=== PATIENT | male | born 1960 | race Caucasian/White ===

== ENCOUNTER → 2020-02-07 14:59 | Outpatient (BNVA) | payer MEDICARE, OTHER, SELFPAY | PROVIDERS: PCP Nurse Practitioner Family; Visit Provider Nurse Practitioner Family | DX: M25.521 Pain in right elbow (principal) | CPT/HCPCS: 73080 ==

== ENCOUNTER → 2020-09-28 14:07 | Outpatient (BNVA) | payer MEDICARE, OTHER, SELFPAY | PROVIDERS: PCP Nurse Practitioner Family; Visit Provider Nurse Practitioner Family | DX: M79.671 Pain in right foot (principal) | CPT/HCPCS: 73630 ==

== ENCOUNTER 2020-11-20 07:13 | Outpatient (CLI) | payer MEDICARE, OTHER, SELFPAY ==
[2020-11-20 07:30] VITALS: BP 198/128; PULSE 74; RESP 18; TEMP 37.1; O2SAT 99; BMI 27.8
--- NOTE | 2020-11-20 07:41 | ED_ITS ---
HPI - General Adult History of Present Illness: HPI narrative: This patient is a 59-year-old male who presents to the emergency department for infusion for treatment due to Covid. Patient denies any increased shortness of breath or work of breathing. Patient states no questions. Associated symptoms: Deny chest pain, dyspnea, headache(s), nausea, rash, palpitations or vomiting Review of Systems General: Reports: 10 or more systems reviewed and unremarkable except in HPI and below Const: Denies: fever(s), chills, body aches or fatigue Eyes: Denies: change in vision or blurry vision ENMT: Denies: throat pain, hoarseness or mouth pain Card: Denies: chest pain, palpitations, irregular heart rhythm, edema, swellin g of feet/ankles or lightheadedness Resp: Denies: dyspnea, productive cough, non-productive cough, wheezing or pain on inspiration GI: Denies: abdominal pain, nausea or vomiting : Denies: flank pain, dysuria, urinary frequency, urinary urgency or urinary hesitancy Musc: Denies: neck pain, back pain, extremity pain, extremity swelling, joint pain, joint swelling, joint redness, joint warmth or limited range of motion Skin/Breast: Denies: rash, pruritus, erythema or skin tenderness Neuro: Denies: headache(s), numbness in extremities or weakness in extremities Psych: Denies: anxiety or depression Physical Exam Const: COMMON NORMALS: no acute distress, average body habitus, patient oriented x3, no limitations, healthy appearing, alert and well nourished HENMT: COMMON NORMALS: normocephalic, atraumatic, hearing grossly normal bilaterally, external ears normal, EAC's normal, TM's normal bilaterally, Normal external nose present, Normal nasal mucous membranes and turbinates present, moist oral mucous membranes, oropharynx normal, dentition normal and gingiva normal HEAD & SCALP: normocephalic and atraumatic NOSE: Normal external nose present and Normal nasal mucous membranes and turbinates present EXTERNAL EAR: Yes external ears normal EXTERNAL AUDITORY CANAL: EAC's normal TYMPANIC MEMBRANE: TM's normal bilaterally Neck/C-Spine: COMMON NORMALS: full ROM, no lymphadenopathy, supple, no meningeal signs, no JVD, Thyroid normal and No carotid bruits THYROID: Thyroid normal Chest: COMMONS NORMALS: normal inspection of the chest, normal palpation of en tire chest wall, normal inspection of the breasts and normal palpation of the breasts Breast/axilla inspection: Yes normal inspection of the breasts BREAST/AXILLA PALPATION: Yes normal palpation of the breasts Resp: COMMON NORMALS: normal respiratory effort, No retractions, No use of accessory muscles, clear to auscultation bilaterally and percussion normal AUSCULTATION: clear to auscultation bilaterally PERCUSSION: percussion normal Cardio: COMMON NORMALS: no JVD, regular rate, regular rhythm, S1 normal heart sound present, S2 normal heart sound present, No gallops present (Cardio), No clicks present (Cardio), No murmurs present (Cardio), No rub (Cardio) and Peripheral pulses 2+ throughout RATE: regular rate RHYTHM: regular rhythm HEART SOUNDS: S1 normal heart sound present and S2 normal heart sound present PERIPHERAL PULSES: Peripheral pulses 2+ throughout GI: COMMON NORMALS: Normal to inspection, nondistended, normoactive bowel sounds present, Soft to palpation, non-tender, No hepatosplenomegaly present, no masses and no bruits PALPATION: Yes Soft to palpation and Yes No hepatosp lenomegaly present : COMMON NORMALS: Yes no CVA tenderness BLADDER/KIDNEY EXAM: Yes no CVA tenderness Back/Pelvis: COMMON NORMALS: no CVA tenderness, thoracic and lumbar spine normal to inspection, no thoracic nor lumbar tenderness, thoraco-lumbar ROM normal and straight leg raise negative bilaterally Extremity: COMMON NORMALS: normal to inspection, full ROM, capillary refill normal, no joint enlargement, no clubbing, cyanosis or edema, no calf tenderness and no pedal edema Neuro: COMMON NORMALS: patient oriented x3 SENSORIUM/ORIENTATION: Yes alert MENINGEAL SIGNS: Yes no meningeal signs Course Vital Signs: Vital signs: Vital Signs Temperature 98.7 F 11/20/20 07:30 Pulse Rate 74 11/20/20 07:30 Respiratory Rate 18 11/20/20 07:30 Blood Pressure 198/128 11/20/20 07:30 Pulse Oximetry 99 11/20/20 07:30 MDM - General Adult MDM Narrative: Medical decision making narrative: This patient is a 59-year-old male who presents to the emergency department for infusion for treatment due to Covid. Patient denies any increased shortness of breath or work of breathing. Patient states no questions. Discharge Plan Discharge Patient Disposition: Home Referrals: Saloni Bashir [Primary Care Provider] - Diet: Advance as tolerated Activity: Resume usual activity Coding Level of Care Code ED Educational Administration Teacher for Trevon De Leon
[2020-11-20 10:24] VITALS: BP 168/104; PULSE 67; RESP 18; O2SAT 98
--- NOTE | 2020-11-28 16:17 | DCPLANNER ---
environmental services project manager had message that patient received the monoclonal antibody infusion. environmental services project manager called to check on patient to see how he was feeling. Patient stated that before the infusion that he had lost his sense of taste and smell. He did not have a cough, or fever. Patient stated that after the infusion that he is feeling much better, he has his smell and taste back, and he is feeling much better.
== END 2020-11-20 07:14 | disposition home or self-care (01) ==
PROVIDERS: PCP Nurse Practitioner Family; Visit Provider Nurse Practitioner Family
DX: U07.1 COVID-19 (principal)
CPT/HCPCS: 96365

== ENCOUNTER → 2021-05-17 10:55 | Outpatient (BNVA) | payer MEDICARE, OTHER, SELFPAY | PROVIDERS: PCP Nurse Practitioner Family; Visit Provider Internal Medicine Rheumatology | DX: M06.041 Rheumatoid arthritis without rheumatoid factor, right hand (principal); M06.042 Rheumatoid arthritis without rheumatoid factor, left hand; Z79.899 Other long term (current) drug therapy; Z71.85 Encounter for immunization safety counseling; Z87.891 Personal history of nicotine dependence | CPT/HCPCS: 99204 ==

== ENCOUNTER → 2021-08-29 10:44 | Outpatient (BNVA) | payer MEDICARE, OTHER, SELFPAY | PROVIDERS: PCP Nurse Practitioner Family; Visit Provider Internal Medicine Rheumatology | DX: M06.041 Rheumatoid arthritis without rheumatoid factor, right hand (principal); M06.042 Rheumatoid arthritis without rheumatoid factor, left hand; Z79.899 Other long term (current) drug therapy; E11.9 Type 2 diabetes mellitus without complications; Z79.84 Long term (current) use of oral hypoglycemic drugs; Z71.85 Encounter for immunization safety counseling | CPT/HCPCS: 99214 ==

== ENCOUNTER → 2021-10-01 10:39 | Outpatient (BNVA) | payer MEDICARE, OTHER, SELFPAY | PROVIDERS: PCP Nurse Practitioner Family; Visit Provider Internal Medicine Rheumatology | DX: M06.041 Rheumatoid arthritis without rheumatoid factor, right hand (principal); M06.042 Rheumatoid arthritis without rheumatoid factor, left hand; Z79.899 Other long term (current) drug therapy; Z71.85 Encounter for immunization safety counseling; E11.9 Type 2 diabetes mellitus without complications; Z79.84 Long term (current) use of oral hypoglycemic drugs; M06.2 Rheumatoid bursitis | CPT/HCPCS: 99214 ==

== ENCOUNTER → 2021-10-02 11:00 | Outpatient (BNVA) | payer MEDICARE, OTHER, SELFPAY | PROVIDERS: PCP Nurse Practitioner Family; Visit Provider Internal Medicine Rheumatology | DX: M06.041 Rheumatoid arthritis without rheumatoid factor, right hand (principal); M06.042 Rheumatoid arthritis without rheumatoid factor, left hand | CPT/HCPCS: 96372 ==

== ENCOUNTER → 2021-12-19 14:04 | Outpatient (BNVA) | payer MEDICARE, OTHER, SELFPAY | PROVIDERS: PCP Nurse Practitioner Family; Visit Provider Internal Medicine Rheumatology | DX: M06.041 Rheumatoid arthritis without rheumatoid factor, right hand (principal); M06.042 Rheumatoid arthritis without rheumatoid factor, left hand; Z79.899 Other long term (current) drug therapy; Z71.85 Encounter for immunization safety counseling | CPT/HCPCS: 99214 ==

== ENCOUNTER → 2022-04-09 14:05 | Outpatient (BNVA) | payer MEDICARE, OTHER, SELFPAY | PROVIDERS: PCP Nurse Practitioner Family; Visit Provider Internal Medicine Rheumatology | DX: I16.0 Hypertensive urgency (principal); M06.041 Rheumatoid arthritis without rheumatoid factor, right hand; M06.042 Rheumatoid arthritis without rheumatoid factor, left hand; Z79.899 Other long term (current) drug therapy; Z71.85 Encounter for immunization safety counseling; I10 Essential (primary) hypertension; Z79.891 Long term (current) use of opiate analgesic | CPT/HCPCS: 99214 ==

== ENCOUNTER → 2022-04-10 13:01 | Outpatient (BNVA) | payer MEDICARE, OTHER, SELFPAY | PROVIDERS: PCP Nurse Practitioner Family; Referring Provider Nurse Practitioner Family; Visit Provider Specialist | DX: M77.8 Other enthesopathies, not elsewhere classified (principal); M19.011 Primary osteoarthritis, right shoulder | CPT/HCPCS: 20610; 73030; 99204; J1100; J2795; J3301 ==

== ENCOUNTER → 2022-07-24 13:19 | Outpatient (BNVA) | payer MEDICARE, OTHER, SELFPAY | PROVIDERS: PCP Nurse Practitioner Family; Visit Provider Internal Medicine Rheumatology | DX: M06.041 Rheumatoid arthritis without rheumatoid factor, right hand (principal); M06.042 Rheumatoid arthritis without rheumatoid factor, left hand; Z79.899 Other long term (current) drug therapy; Z71.85 Encounter for immunization safety counseling; I10 Essential (primary) hypertension | CPT/HCPCS: 36415; 80076; 82565; 85025; 86140; 99214 ==

== ENCOUNTER → 2022-10-09 12:33 | Outpatient (BNVA) | payer MEDICARE, OTHER, SELFPAY | PROVIDERS: PCP Nurse Practitioner Family; Visit Provider Internal Medicine Rheumatology | DX: Z79.899 Other long term (current) drug therapy (principal); M06.042 Rheumatoid arthritis without rheumatoid factor, left hand; Z71.85 Encounter for immunization safety counseling; I10 Essential (primary) hypertension | CPT/HCPCS: 36415; 73562; 73610; 80076; 82565; 85025; 86140; 99214 ==

== ENCOUNTER → 2023-01-29 13:07 | Outpatient (BNVA) | payer MEDICARE, OTHER, SELFPAY | PROVIDERS: PCP Nurse Practitioner Family; Visit Provider Internal Medicine Rheumatology | DX: Z79.899 Other long term (current) drug therapy (principal); M06.041 Rheumatoid arthritis without rheumatoid factor, right hand; M06.042 Rheumatoid arthritis without rheumatoid factor, left hand; Z71.85 Encounter for immunization safety counseling; I10 Essential (primary) hypertension | CPT/HCPCS: 36415; 80076; 82565; 85025; 86140; 99214 ==

== ENCOUNTER → 2023-05-13 13:24 | Outpatient (BNVA) | payer MEDICARE, OTHER, SELFPAY | PROVIDERS: PCP Nurse Practitioner Family; Visit Provider Internal Medicine Rheumatology | DX: Z79.899 Other long term (current) drug therapy (principal); M06.041 Rheumatoid arthritis without rheumatoid factor, right hand; M06.042 Rheumatoid arthritis without rheumatoid factor, left hand; Z71.85 Encounter for immunization safety counseling; I10 Essential (primary) hypertension | CPT/HCPCS: 36415; 80076; 82565; 85025; 86140; 99214 ==

== ENCOUNTER → 2023-08-06 11:47 | Outpatient (BNVA) | payer MEDICARE, OTHER, SELFPAY | PROVIDERS: PCP Nurse Practitioner Family; Referring Provider Nurse Practitioner Family; Visit Provider Nurse Practitioner Family | DX: M25.561 Pain in right knee (principal); M25.461 Effusion, right knee | CPT/HCPCS: 73562 ==

== ENCOUNTER 2023-08-26 10:00 | Oncology outpatient (recurring) (ONCR) | payer MEDICARE, OTHER, SELFPAY ==
[2023-08-21 10:53] VITALS: BP 177/107
[2023-08-21] MEDS: cloNIDine 0.1 mg Tablet 0.100000000000000006 MG PO ×2 (10:53→12:02)
[2023-08-21 12:02] VITALS: BP 168/108
[2023-08-21 14:37] VITALS: BP 161/65
--- NOTE | 2023-08-21 14:38 | PC.NURSE ---
Pt in infusion room for infliximab.Pt had elevated BP of 177/107. Spoke with Dr. Kelly Santos's nurse. States to give pt clonidine 0.1mg and recheck BP in 30 minutes. Rechecked pts BP at approx. 1120, pts BP 168/108. Notified Danielle, states per Dr. Mendoza, give another clonidine of 0.1mg. After 30 more minutes, pts BP down to 161/95. Danielle states pts BP was okay to infusion. Pt was rescheduled due to not enough time to infuse medication. HODA
[2023-08-26] VITALS (8 sets, daily range): BP systolic 100–146; BP diastolic 65–85; PULSE 72–86; RESP 16; TEMP 36–36.9; O2SAT 91–96
[2023-08-26] MEDS: acetaminophen 325 mg Tablet 650 MG PO (10:35)
[2023-08-26] MEDS: sodium chloride 0.9% 250 ML 75 ML IV (10:35)
[2023-08-26] MEDS: diphenhydrAMINE 50 mg/mL SDV 1mL 25 MG IVP (10:36)
[2023-08-26] MEDS: methylPREDNISolone sod succ 40 mg/mL INJ 20 MG IVP (10:37)
[2023-08-26] MEDS: infliximab-abda 540 MG in sodium chloride 0.9% 250 ML 10 MG IV (11:10)
== END 2023-08-26 23:59 | disposition home or self-care (01) ==
PROVIDERS: PCP Nurse Practitioner Family; Visit Provider Internal Medicine Rheumatology
DX: M06.042 Rheumatoid arthritis without rheumatoid factor, left hand (principal); M06.041 Rheumatoid arthritis without rheumatoid factor, right hand; Z53.9 Procedure and treatment not carried out, unspecified reason
CPT/HCPCS: 96375; 96413; 96415; A4222; J1200; J2919; J7050; Q5104

== ENCOUNTER → 2023-09-02 12:53 | Outpatient (BNVA) | payer MEDICARE, OTHER, SELFPAY | PROVIDERS: PCP Nurse Practitioner Family; Visit Provider Internal Medicine Rheumatology | DX: R03.0 Elevated blood-pressure reading, without diagnosis of hypertension (principal); M06.041 Rheumatoid arthritis without rheumatoid factor, right hand; M06.042 Rheumatoid arthritis without rheumatoid factor, left hand; Z79.899 Other long term (current) drug therapy; Z71.85 Encounter for immunization safety counseling; I10 Essential (primary) hypertension | CPT/HCPCS: 99214 ==

== ENCOUNTER 2023-09-09 09:07 | Oncology outpatient (recurring) (ONCR) | payer MEDICARE, OTHER, SELFPAY ==
[2023-09-09] VITALS (11 sets, daily range): BP systolic 114–155; BP diastolic 58–98; PULSE 69–83; RESP 16–18; TEMP 36.7–37.1; O2SAT 87–97
[2023-09-09] MEDS: acetaminophen 325 mg Tablet 650 MG PO (09:28)
[2023-09-09] MEDS: diphenhydrAMINE 50 mg/mL SDV 1mL 25 MG IVP ×2 (09:28→11:20)
[2023-09-09] MEDS: methylPREDNISolone sod succ 40 mg/mL INJ 20 MG IVP (09:29)
[2023-09-09] MEDS: infliximab-abda 540 MG in sodium chloride 0.9% 250 ML 10 MG IV (10:05)
[2023-09-09] MEDS: sodium chloride 0.9% 250 ML 75 ML IV (11:20)
[2023-09-09] MEDS: famotidine 20 mg/2 mL INJ IVP (11:21)
[2023-09-09] MEDS: methylPREDNISolone sod succ 40 mg/mL INJ IVP (11:22)
[2023-09-09] MEDS: ipratropium-albuterol 3 mL Neb INHALATION (11:30)
[2023-09-09] MEDS: sodium chloride 0.9% 500 ML IV (11:30)
== END 2023-09-26 23:59 | disposition home or self-care (01) ==
LOC: ONCMED 09:08
PROVIDERS: PCP Nurse Practitioner Family; Visit Provider Internal Medicine Rheumatology
DX: M06.042 Rheumatoid arthritis without rheumatoid factor, left hand (principal); M06.041 Rheumatoid arthritis without rheumatoid factor, right hand
CPT/HCPCS: 96375; 96413; A4222; J1200; J2919; J3490; J7040; J7050; Q5104

== ENCOUNTER 2023-10-15 09:00 | Oncology outpatient (recurring) (ONCR) | payer MEDICARE, OTHER, SELFPAY ==
[2023-10-02] VITALS (9 sets, daily range): BP systolic 125–165; BP diastolic 70–105; PULSE 66–88; RESP 16; TEMP 35.7–36.6; O2SAT 92–99; BMI 27.1
[2023-10-02] MEDS: acetaminophen 325 mg Tablet 650 MG PO (08:59)
[2023-10-02] MEDS: methylPREDNISolone sod succ 40 mg/mL INJ 25 MG IVP (08:59)
[2023-10-02] MEDS: diphenhydrAMINE 50 mg/mL SDV 1mL 25 MG IVP (08:59)
[2023-10-02] MEDS: sodium chloride 0.9% 250 ML 75 ML IV (09:00)
[2023-10-02] MEDS: rituximab-abbs 1,000 MG in sodium chloride 0.9% 500 ML 200 MG IV (09:36)
[2023-10-15 08:52] VITALS: BMI 26.7
[2023-10-15 08:53] VITALS: BP 146/96; PULSE 96; RESP 16; TEMP 36.7; O2SAT 99
[2023-10-15] MEDS: sodium chloride 0.9% 250 ML 75 ML IV (09:32)
[2023-10-15] MEDS: acetaminophen 325 mg Tablet 650 MG PO (09:32)
[2023-10-15] MEDS: methylPREDNISolone sod succ 40 mg/mL INJ 25 MG IVP (09:32)
[2023-10-15] MEDS: diphenhydrAMINE 50 mg/mL SDV 1mL 25 MG IVP (09:38)
[2023-10-15 09:50] VITALS: BP 147/96; PULSE 90; RESP 16; TEMP 36.7; O2SAT 98
[2023-10-15] MEDS: rituximab-abbs 1,000 MG in sodium chloride 0.9% 500 ML 37.5 MG IV (09:52)
[2023-10-15 10:20] VITALS: BP 119/71; PULSE 81; RESP 16; TEMP 36.7; O2SAT 96
[2023-10-15 10:55] VITALS: BP 110/70; PULSE 73; RESP 16
[2023-10-15 11:25] VITALS: BP 113/72; PULSE 78; RESP 16; O2SAT 92
[2023-10-15 13:16] VITALS: BP 146/101; PULSE 100; RESP 18; TEMP 36.6; O2SAT 100
== END 2023-10-15 23:59 | disposition home or self-care (01) ==
PROVIDERS: PCP Nurse Practitioner Family; Visit Provider Internal Medicine Rheumatology
DX: M06.041 Rheumatoid arthritis without rheumatoid factor, right hand; M06.042 Rheumatoid arthritis without rheumatoid factor, left hand; Z53.9 Procedure and treatment not carried out, unspecified reason
CPT/HCPCS: 96375; 96413; 96415; J1200; J2919; J7040; J7050; Q5115

== ENCOUNTER 2023-11-26 08:20 | Oncology outpatient (recurring) (ONCR) | payer MEDICARE, OTHER, SELFPAY ==
[2023-11-26 08:57] VITALS: BP 136/90; PULSE 64; RESP 16; TEMP 36.6; O2SAT 94
--- NOTE | 2023-11-26 09:40 | PC.NURSE ---
Pt here for infusion of Rituximab. Pt not actually due for infusion until march. Pt states he spoke with Dr. Mendoza a few weeks ago due to his infusions not helping anymore and Dr. Mendoza stated when he gets the infusion in a few weeks it will be in his system better. Pharm. Huff has note in chart that she spoke with Dr. Mendoza and pt is to receive infusion Q6 months. Spoke with Danielle, Dr. Mendoza's nurse. She states she has a note in pts chart from Dr. Mendoza that he just needs to give infusion time to work. Spoke with pt, notified that he will not receive infusion today. Scheduled pt for April 05 infusion of Rituximab. HODA
== END 2023-11-26 23:59 | disposition home or self-care (01) ==
PROVIDERS: PCP Nurse Practitioner Family; Visit Provider Internal Medicine Rheumatology
DX: M06.042 Rheumatoid arthritis without rheumatoid factor, left hand (principal); M06.041 Rheumatoid arthritis without rheumatoid factor, right hand

== ENCOUNTER → 2024-01-13 13:58 | Outpatient (BNVA) | payer MEDICARE, OTHER, SELFPAY | PROVIDERS: PCP Nurse Practitioner Family; Visit Provider Internal Medicine Rheumatology | DX: M06.041 Rheumatoid arthritis without rheumatoid factor, right hand (principal); M06.042 Rheumatoid arthritis without rheumatoid factor, left hand; Z79.899 Other long term (current) drug therapy; Z71.85 Encounter for immunization safety counseling; I10 Essential (primary) hypertension; R03.0 Elevated blood-pressure reading, without diagnosis of hypertension | CPT/HCPCS: 36415; 80076; 82565; 85025; 85651; 86140; 86480; 86704; 86803; 87340; 99214 ==

== ENCOUNTER 2024-02-10 10:00 | Oncology outpatient (recurring) (ONCR) | payer MEDICARE, OTHER, SELFPAY ==
[2024-01-28 08:43] VITALS: BP 147/88; PULSE 71; RESP 16; TEMP 36.4; O2SAT 96
[2024-01-28] MEDS: sodium chloride 0.9% 250 ML 75 ML IV (09:02)
[2024-01-28] MEDS: methylPREDNISolone sod succ 40 mg/mL INJ 25 MG IVP (09:06)
[2024-01-28] MEDS: acetaminophen 325 mg Tablet 650 MG PO (09:09)
[2024-01-28] MEDS: diphenhydrAMINE 50 mg/mL SDV 1mL 25 MG IVP (09:11)
[2024-01-28 09:45] VITALS: BP 111/73; PULSE 71; RESP 16; TEMP 36.8; O2SAT 96
[2024-01-28] MEDS: rituximab-abbs 1,000 MG in sodium chloride 0.9% 500 ML 70 MG IV (09:45)
[2024-01-28 10:15] VITALS: BP 106/70; PULSE 66; RESP 16; TEMP 36.9; O2SAT 91
[2024-01-28 10:45] VITALS: BP 113/72; PULSE 62; RESP 16; TEMP 36.7; O2SAT 91
[2024-01-28 12:59] VITALS: BP 152/94; PULSE 77; RESP 17; TEMP 36.6; O2SAT 77
[2024-02-10] VITALS (7 sets, daily range): BP systolic 105–170; BP diastolic 67–110; PULSE 66–82; RESP 16; TEMP 36.3–37.1; O2SAT 90–97
[2024-02-10] MEDS: acetaminophen 325 mg Tablet 650 MG PO (10:22)
[2024-02-10] MEDS: methylPREDNISolone sod succ 40 mg/mL INJ 25 MG IVP (10:23)
[2024-02-10] MEDS: diphenhydrAMINE 50 mg/mL SDV 1mL 25 MG IVP (10:24)
[2024-02-10] MEDS: rituximab-abbs 1,000 MG in sodium chloride 0.9% 500 ML 65 MG IV (11:05)
== END 2024-02-10 23:59 | disposition home or self-care (01) ==
PROVIDERS: PCP Nurse Practitioner Family; Visit Provider Internal Medicine Rheumatology
DX: M06.042 Rheumatoid arthritis without rheumatoid factor, left hand (principal); M06.041 Rheumatoid arthritis without rheumatoid factor, right hand
CPT/HCPCS: 96375; 96413; 96415; J1200; J2919; J7040; J7050; Q5115

== ENCOUNTER 2024-05-24 08:02 | Oncology outpatient (recurring) (ONCR) | payer MEDICARE, OTHER, SELFPAY ==
[2024-05-19 09:50] VITALS: BMI 27.1
[2024-05-19 09:51] VITALS: BP 211/140; PULSE 70; RESP 18; TEMP 36.7; O2SAT 99
--- NOTE | 2024-05-19 09:56 | PC.NURSE ---
PT has High BP has taken 2 clonidine at home with little results. Unable to do treatment. MD notified and rescheduled for next week. Recommended to patient to go to ER for further treatment.
[2024-05-19 10:11] VITALS: BP 167/107
[2024-05-24] VITALS (8 sets, daily range): BP systolic 112–175; BP diastolic 66–116; PULSE 65–79; RESP 16–17; TEMP 35.9–36.9; O2SAT 92–98
[2024-05-24 08:24] LABS: Basophils # 0.1 10^3/uL (0.0-0.1); Basophils % 1.3 %; Eosinophils # 0.2 10^3/uL (0.0-0.8); Eosinophils % 3.9 %; Hematocrit 43.3 % (37-53); Lymphocytes # 0.9 10^3/uL (0.8-4.8); Lymphocytes % 20.1 %; Mean Corpuscular HGB Conc 34.2 g/dL (30-55); Mean Corpuscular Hemoglobin 31.2 pg (27-33); Mean Corpuscular Volume 91.2 fl (82-101); Mean Platelet Volume 10.3 fL (7.4-10.4); Monocytes # 0.7 10^3/uL (0.2-0.9); Neutrophils % 58.5 %; Nucleated Red Blood Cells % 0 %; Platelet Count 211 10^3/cmm (157-399); Red Blood Count 4.75 10^6/uL (3.85-5.65); White Blood Count 4.62 10^3/uL (3.29-11.43)
[2024-05-24 08:39] LABS: Erythrocyte Sedimentation Rate 2 mm/hr (0-10)
[2024-05-24 08:42] LABS: Albumin Level 3.9 g/dL (3.5-5.2); Alkaline Phosphatase 73 U/L (40-130); Creatinine Clr Calc Pharmacy 124.7109; Globulin 2.5 g/dL (1.3-4.6); Glomerular Filtration Rate 114.6 mL/min (90-130); Total Bilirubin 0.3 mg/dL (0.15-1.2); Total Protein 6.4 g/dL (6.6-8.7)
[2024-05-24 08:49] LABS: Alanine Aminotransferase 21 U/L (0-41); Aspartate Amino Transferase 29 U/L (0-40)
[2024-05-24] MEDS: sodium chloride 0.9% 500 ML 75 ML IV (09:09)
[2024-05-24] MEDS: acetaminophen 325 mg Tablet 650 MG PO (09:09)
[2024-05-24] MEDS: diphenhydrAMINE 50 mg/mL SDV 1mL 25 MG IVP (09:10)
[2024-05-24] MEDS: methylPREDNISolone sod succ 40 mg/mL INJ 25 MG IVP (09:13)
[2024-05-24] MEDS: rituximab-abbs 1,000 MG in sodium chloride 0.9% 500 ML 65 MG IV (09:47)
== END 2024-05-28 23:59 | disposition home or self-care (01) ==
PROVIDERS: PCP Nurse Practitioner Family; Visit Provider Internal Medicine Rheumatology
DX: Z53.9 Procedure and treatment not carried out, unspecified reason; M06.042 Rheumatoid arthritis without rheumatoid factor, left hand; M06.041 Rheumatoid arthritis without rheumatoid factor, right hand; F17.220 Nicotine dependence, chewing tobacco, uncomplicated; I10 Essential (primary) hypertension; R03.0 Elevated blood-pressure reading, without diagnosis of hypertension; Z79.899 Other long term (current) drug therapy; Z71.85 Encounter for immunization safety counseling; Z79.52 Long term (current) use of systemic steroids
CPT/HCPCS: 80076; 82565; 85025; 85651; 86140; 96365; 96366; 96375; 99214; J1200; J2919; J7040; Q5115

== ENCOUNTER 2024-06-07 09:54 | Oncology outpatient (recurring) (ONCR) | payer MEDICARE, OTHER, SELFPAY ==
[2024-06-07] VITALS (7 sets, daily range): BP systolic 103–164; BP diastolic 60–109; PULSE 63–72; RESP 16–17; TEMP 36.2–36.7; O2SAT 93–97
[2024-06-07] MEDS: sodium chloride 0.9% 250 ML 75 ML IV (11:52)
[2024-06-07] MEDS: methylPREDNISolone sod succ 40 mg/mL INJ 25 MG IVP (11:56)
[2024-06-07] MEDS: acetaminophen 325 mg Tablet 650 MG PO (11:56)
[2024-06-07] MEDS: diphenhydrAMINE 50 mg/mL SDV 1mL 25 MG IVP (12:00)
[2024-06-07] MEDS: rituximab-abbs 1,000 MG in sodium chloride 0.9% 500 ML 70 MG IV (12:37)
== END 2024-06-25 23:59 | disposition home or self-care (01) ==
PROVIDERS: PCP Nurse Practitioner Family; Visit Provider Internal Medicine Rheumatology
DX: M06.042 Rheumatoid arthritis without rheumatoid factor, left hand (principal); M06.041 Rheumatoid arthritis without rheumatoid factor, right hand; Z79.899 Other long term (current) drug therapy
CPT/HCPCS: 96375; 96413; 96415; J1200; J2919; J7040; J7050; Q5115

== ENCOUNTER → 2024-06-29 09:37 | Outpatient (BNVA) | payer MEDICARE, OTHER, SELFPAY | PROVIDERS: PCP Nurse Practitioner Family; Visit Provider Internal Medicine Cardiovascular Disease | DX: R07.9 Chest pain, unspecified (principal) | CPT/HCPCS: 93005 ==

== ENCOUNTER 2024-07-16 08:00 | Oncology outpatient (recurring) (ONCR) | payer MEDICARE, OTHER, SELFPAY ==
--- NOTE | 2024-07-09 14:10 | USCV_ITS ---
Pato Mccormack Age: 63 Gender: M : 1960 Exam Date: 07/09/2024 14:23 Ordering Phys: Rica Valenzuela MD ([email or web address]) Technologist: [facility] Exam Location: [facility] [place] Indication: htn Aortic Velocity @ SMA (cm/s) 118 RIGHT KIDNEY LEFT KIDNEY Velocity (cm/s) Velocity (cm/s) Sys/Padilla Sys/Padilla Resistive Index Resistive Index 154.2 / 38.3 0.75 Proximal Renal Artery 124.7 / 48.0 0.62 244.9 / 86.7 0.65 Mid Renal Artery 250.8 / 96.5 0.62 107.5 / 28.8 0.73 Distal Renal Artery 123.4 / 48.7 0.61 166.4 / 65.6 0.61 Hilar 72.2 / 28.8 0.60 69.8 / 24.8 0.64 Upper Pole 45.3 / 18.3 0.60 46.7 / 17.7 0.62 Mid Pole 79.2 / 29.2 0.63 46.6 / 17.6 0.62 Lower Pole 48.5 / 14.5 0.70 2.08 Renal Aortic Ratio 2.12 Accleration Time (sec) 0.10 Hilar 0.16 0.07 Upper Pole 0.07 0.18 Mid Pole 0.10 0.12 Lower Pole 0.19 11.0 Kidney Length (cm) 9.3 CONCLUSIONS Increased systolic flow velocities (>180cm/s) and post-stenotic turbulence noted in the MID right and left renal arteries suggesting hemodynamically significant (>60% ) renal artery stenosis. No hydronephrosis Complex Left renal lesion measuring 1.5 x 1.6cm is poorly evaluated. Recommend further evaluation with contrast enhanced CT or dedicated renal ultrasound Michael Eugene MD (Electronically Signed) Final Date: 09 July 2024 16:10 S
--- NOTE | 2024-07-16 08:00 | CTR_ITS ---
PROCEDURE INFORMATION: Exam: CTA Abdomen With Contrast Exam date and time: 07/16/2024 8:16 AM Age: 63 years old Clinical indication: Abdominal pain; Other: Bilateral; Prior surgery; Surgery date: 6+ months; Surgery type: Lumbar surgery x 4; Increasing back pain (both flanks) x 6 weeks, high blood pressure; Additional info: I70.1 - atherosclerosis of renal artery TECHNIQUE: Imaging protocol: Computed tomographic angiography of the abdomen with contrast. Exam focused on the arteries. 3D rendering (Not supervised by radiologist): MIP and/or 3D reconstructed images were created by the technologist. Radiation optimization: All CT scans at this facility use at least one of these dose optimization techniques: automated exposure control; mA and/or kV adjustment per patient size (includes targeted exams where dose is matched to clinical indication); or iterative reconstruction. Contrast material: OMNI 350; Contrast volume: 100 ml; Contrast route: INTRAVENOUS (IV); COMPARISON: No relevant prior studies available. RADIATION DOSE METRICS: Total DLP (mGy-cm): 377.55 FINDINGS: Lungs: Calcified granuloma at the right lung base. Aorta: Mild calcified atherosclerotic changes are seen throughout the abdominal aorta. Celiac trunk and mesenteric arteries: No occlusion or significant stenosis. Renal arteries: Bilateral renal arteries are patent. Liver: Normal. No mass. Gallbladder and biliary ducts: Normal. No calcified stones. No ductal dilation. Pancreas: Normal. No ductal dilation. Spleen: Normal. No splenomegaly. Adrenal glands: Normal. No mass. Kidneys: There is a simple cyst in the left kidney midpole posteriorly measuring 1.7 x 1.5 cm. No hydronephrosis. Stomach and bowel: Diffuse colonic stool material. No small bowel loop dilatation. Appendix: Appendix is normal. Lymph nodes: Unremarkable. No enlarged lymph nodes. Intraperitoneal space: Unremarkable. No free air. No significant fluid collection. Bones/joints: There is posterior fusion from L2-S1 level with surgical rods and pedicle screws. Interbody devices are seen at the L3-L4, L4-L5 and L5-S1 levels. There is grade 1 retrolisthesis of L1 on L2 vertebral body proximally 3 mm. There is grade 1 retrolisthesis of L2 on L3 vertebral body proximally 5 mm. Post laminectomy changes are seen from the L2 through S1 levels. Soft tissues: Unremarkable. CT/CT angio abdomen 22456 IMPRESSION: 1. Posterior fusion from L2-S1 level as described. Additional degenerative changes as described. 2. Mild calcified atherosclerotic changes are seen throughout the abdominal aorta. 3. Diffuse colonic stool material. Clinical correlation to exclude constipation is advised.
[2024-07-16] MEDS: iohexol 350 mg/mL 500 mL Btl (per mL) IV (08:34)
== END 2024-07-26 23:59 | disposition home or self-care (01) ==
LOC: RAD 07-17 00:01 → ONCMED 07-19 09:36
PROVIDERS: PCP Nurse Practitioner Family; Visit Provider Internal Medicine Cardiovascular Disease
DX: M06.042 Rheumatoid arthritis without rheumatoid factor, left hand (principal); M06.041 Rheumatoid arthritis without rheumatoid factor, right hand; Z79.899 Other long term (current) drug therapy; I10 Essential (primary) hypertension
CPT/HCPCS: 74175; 93975

== ENCOUNTER → 2024-09-01 13:40 | Outpatient (BNVA) | payer MEDICARE, OTHER, SELFPAY | PROVIDERS: PCP Nurse Practitioner Family; Visit Provider Internal Medicine Rheumatology | DX: M06.041 Rheumatoid arthritis without rheumatoid factor, right hand (principal); M06.042 Rheumatoid arthritis without rheumatoid factor, left hand; Z79.899 Other long term (current) drug therapy; Z71.85 Encounter for immunization safety counseling; I10 Essential (primary) hypertension; R03.0 Elevated blood-pressure reading, without diagnosis of hypertension | CPT/HCPCS: 36415; 80076; 82565; 85025; 85651; 86140; 99215 ==

== ENCOUNTER 2024-09-22 08:15 | Oncology outpatient (recurring) (ONCR) | payer MEDICARE, OTHER, SELFPAY ==
[2024-09-22 08:26] VITALS: BP 170/109; PULSE 89; RESP 16; TEMP 36.6; O2SAT 96
[2024-09-22 09:04] VITALS: BP 139/88
[2024-09-22] MEDS: diphenhydrAMINE 50 mg/mL SDV 1mL 25 MG IVP (09:32)
[2024-09-22] MEDS: sodium chloride 0.9% 250 ML 75 ML IV (09:32)
[2024-09-22] MEDS: methylPREDNISolone sod succ 40 mg/mL INJ 25 MG IVP (09:38)
[2024-09-22] MEDS: acetaminophen 325 mg Tablet 650 MG PO (09:39)
[2024-09-22] MEDS: rituximab-abbs 1,000 MG in sodium chloride 0.9% 500 ML 75 MG IV (10:24)
[2024-09-22 10:30] VITALS: BP 141/88; PULSE 76; RESP 16; TEMP 37.3; O2SAT 99
[2024-09-22 11:00] VITALS: BP 149/82; PULSE 75; RESP 16; TEMP 37; O2SAT 92
[2024-09-22 11:30] VITALS: BP 148/97; PULSE 81; RESP 16; TEMP 37; O2SAT 94
[2024-09-22 14:16] VITALS: BP 148/84; PULSE 88; RESP 16; TEMP 36.7; O2SAT 94
== END 2024-09-25 23:59 | disposition home or self-care (01) ==
PROVIDERS: PCP Nurse Practitioner Family; Visit Provider Internal Medicine Cardiovascular Disease
DX: M06.042 Rheumatoid arthritis without rheumatoid factor, left hand (principal); M06.041 Rheumatoid arthritis without rheumatoid factor, right hand; Z79.620 Long term (current) use of immunosuppressive biologic; Z79.899 Other long term (current) drug therapy
CPT/HCPCS: 96375; 96413; 96415; J1200; J2919; J7040; J7050; J9999; Q5115

== ENCOUNTER 2024-10-13 08:43 | Oncology outpatient (recurring) (ONCR) | payer MEDICARE, OTHER, SELFPAY ==
[2024-10-13 09:11] VITALS: BP 160/108; PULSE 77; RESP 16; TEMP 36.6; O2SAT 99
[2024-10-13 09:26] VITALS: BP 161/96
[2024-10-13] MEDS: sodium chloride 0.9% 250 ML 25 ML IV (09:52)
[2024-10-13] MEDS: diphenhydrAMINE 50 mg/mL SDV 1mL 25 MG IVP (09:53)
[2024-10-13] MEDS: methylPREDNISolone sod succ 40 mg/mL INJ 25 MG IVP (09:59)
--- NOTE | 2024-10-13 10:02 | PC.NURSE ---
patient refused tylenol
[2024-10-13] MEDS: rituximab-abbs 1,000 MG in sodium chloride 0.9% 500 ML 70 MG IV (10:46)
[2024-10-13 11:15] VITALS: BP 134/84; PULSE 79; RESP 16; TEMP 36.2; O2SAT 92
[2024-10-13 11:45] VITALS: BP 146/81; PULSE 70; RESP 16; TEMP 37.2; O2SAT 93
[2024-10-13 12:15] VITALS: BP 147/88; PULSE 80; RESP 16; TEMP 36.6; O2SAT 96
[2024-10-13 14:01] VITALS: BP 159/93; PULSE 97; RESP 16; TEMP 36.6; O2SAT 96
== END 2024-10-25 23:59 | disposition home or self-care (01) ==
PROVIDERS: PCP Nurse Practitioner Family; Visit Provider Internal Medicine Cardiovascular Disease
DX: M06.042 Rheumatoid arthritis without rheumatoid factor, left hand (principal); M06.041 Rheumatoid arthritis without rheumatoid factor, right hand; Z79.899 Other long term (current) drug therapy
CPT/HCPCS: 96365; 96366; J1200; J2919; J7040; J7050; Q5115

== ENCOUNTER → 2024-12-15 14:56 | Outpatient (BNVA) | payer MEDICARE, OTHER, SELFPAY | PROVIDERS: PCP Nurse Practitioner Family; Visit Provider Internal Medicine Cardiovascular Disease | DX: I10 Essential (primary) hypertension (principal); M19.011 Primary osteoarthritis, right shoulder; Z87.891 Personal history of nicotine dependence | CPT/HCPCS: 99214 ==

== ENCOUNTER 2025-01-25 09:01 | Oncology outpatient (recurring) (ONCR) | payer MEDICARE, OTHER, SELFPAY ==
[2025-01-12 09:34] VITALS: BP 145/92; PULSE 67; RESP 16; TEMP 36.6; O2SAT 99
[2025-01-12] MEDS: diphenhydrAMINE 50 mg/mL SDV 1mL 25 MG IVP (09:42)
[2025-01-12] MEDS: methylPREDNISolone sod succ 40 mg/mL INJ 25 MG IVP (09:47)
[2025-01-12] MEDS: rituximab-pvvr 1,000 MG in sodium chloride 0.9% 500 ML 75 MG IV (10:07)
[2025-01-12 10:35] VITALS: BP 129/88; PULSE 75; RESP 18; TEMP 36.1; O2SAT 97
[2025-01-12 11:05] VITALS: BP 118/79; PULSE 71; RESP 18; TEMP 36.6; O2SAT 97
[2025-01-12 11:35] VITALS: BP 119/79; PULSE 71; RESP 18; TEMP 36.2; O2SAT 97
[2025-01-12 12:10] VITALS: BP 122/80; PULSE 73; RESP 18; TEMP 36.1; O2SAT 97
[2025-01-12 13:40] VITALS: BP 128/80; PULSE 80; RESP 17; TEMP 36.5; O2SAT 97
[2025-01-25 10:11] VITALS: BP 163/98
[2025-01-25 10:24] LABS: Hematocrit 40.1 % (37-53); Hemoglobin 13.90 g/dL (11.27-16.99); Mean Corpuscular HGB Conc 34.7 g/dL (30-55); Mean Corpuscular Hemoglobin 31.4 pg (27-33); Mean Corpuscular Volume 90.5 fl (82-101); Nucleated Red Blood Cells % 0 %; Platelet Count 216 10^3/cmm (157-399); Red Blood Count 4.43 10^6/uL (3.85-5.65); White Blood Count 9.43 10^3/uL (3.29-11.43)
[2025-01-25] MEDS: methylPREDNISolone sod succ 40 mg/mL INJ 25 MG IVP (10:47)
[2025-01-25 10:48] LABS: Alanine Aminotransferase 26 U/L (0-41); Albumin Level 4.1 g/dL (3.5-5.2); Alkaline Phosphatase 59 U/L (40-130); Aspartate Amino Transferase 15 U/L (0-40); Creatinine Clr Calc Pharmacy 108.4780; Globulin 2.5 g/dL (1.3-4.6); Total Protein 6.6 g/dL (6.6-8.7)
[2025-01-25] MEDS: diphenhydrAMINE 50 mg/mL SDV 1mL 25 MG IVP (10:51)
[2025-01-25 12:00] VITALS: BP 131/77; PULSE 67; RESP 16; TEMP 36.5; O2SAT 94
[2025-01-25] MEDS: rituximab-pvvr 1,000 MG in sodium chloride 0.9% 500 ML 70 MG IV (12:00)
[2025-01-25 12:30] VITALS: BP 130/76; PULSE 73; RESP 16; TEMP 36.8; O2SAT 94
[2025-01-25 13:00] VITALS: BP 138/80; PULSE 73; RESP 16; O2SAT 96
[2025-01-25 13:34] VITALS: BP 118/74; PULSE 73; RESP 16; TEMP 37; O2SAT 94
[2025-01-25 15:14] VITALS: BP 141/88; PULSE 81; RESP 17; TEMP 36.9; O2SAT 94
== END 2025-01-25 23:59 | disposition home or self-care (01) ==
PROVIDERS: Internal Medicine Rheumatology; PCP Nurse Practitioner Family; Visit Provider Internal Medicine Cardiovascular Disease
DX: M06.042 Rheumatoid arthritis without rheumatoid factor, left hand; M06.041 Rheumatoid arthritis without rheumatoid factor, right hand; Z79.899 Other long term (current) drug therapy; Z53.9 Procedure and treatment not carried out, unspecified reason
CPT/HCPCS: 80076; 82565; 85025; 85651; 86140; 96375; 96413; 96415; J1200; J2919; J7040; J7050; J9999; Q5119

== ENCOUNTER → 2025-03-02 13:57 | Outpatient (BNVA) | payer MEDICARE, OTHER, SELFPAY | PROVIDERS: PCP Nurse Practitioner Family; Visit Provider Internal Medicine Rheumatology | DX: M06.041 Rheumatoid arthritis without rheumatoid factor, right hand (principal); M06.042 Rheumatoid arthritis without rheumatoid factor, left hand; Z79.899 Other long term (current) drug therapy; Z71.85 Encounter for immunization safety counseling; I10 Essential (primary) hypertension; R03.0 Elevated blood-pressure reading, without diagnosis of hypertension; E11.9 Type 2 diabetes mellitus without complications | CPT/HCPCS: 99214 ==

== ENCOUNTER 2025-03-10 08:45 | Oncology outpatient (recurring) (ONCR) | payer MEDICARE, OTHER, SELFPAY ==
--- NOTE | 2025-03-10 11:12 | N.ONRAD NP_ITS ---
Radiation Oncology New Patient Visit Patient: Pato Mccormack MR#: [id number] : 1960 Age: 64 Sex: Male Dictated by: Romie Bosch DO/ANA LILIA Date of Service: 03/10/2025 Referring Physician(s) : Dr: Phan Yarbrough MD Diagnosis: M06.042 - rheumatoid arthritis without rheumatoid factor, left hand, Diagnosed 03/10/2025 (active), M06.041 - rheumatoid arthritis without rheumatoid factor, right hand, Diagnosed 03/10/2025 (active) and M06.00 - rheumatoid arthritis without rheumatoid factor, unspecified site, Diagnosed 03/09/2025 (active). SERO ??? RA X 20 YEARS AWAITING ENBREL APPROVAL, TAKES PREDNISONE 20MG QD FOR FLARES, 2/10 PAIN LEVEL, FAILED REMICADE/ ACTEMYRA/ HUMIRA/ ORENCIA/ XELJANZ(COULD NOT AFFORD)/ LEFLUNOMIDE/ METHOTREXATE/ RENFLEXIS/ RITUXIMAB, A1C 14, RA FACTOR/CCP ??? STAGE: NA ICD-10: M06.042, M06.041, M06.00 Radiotherapy to date: Summary > No prior radiation therapy. Chief Complaint: Evaluate for LD XRT to bilateral hands History of Present Illness: This is a pleasant 64-year-old male who has had a 20-year history of seronegative RA that is failed with multiple medications. He uses prednisone 20 mg daily for flares. He is trialed REMICADE/ ACTEMYRA/ HUMIRA/ ORENCIA/ XELJANZ(COULD NOT AFFORD)/ LEFLUNOMIDE/ METHOTREXATE/ RENFLEXIS/ RITUXIMAB with no relief.. He is on disability for the last 15 years and has sleep disturbances due to this pain. Current Medications: carvedilol 6.25 mg PO BID celecoxib (Celebrex) 200 mg PO QDAY PRN hydralazine 25 mg PO DIRECTED PRN leflunomide 20 mg PO DAILY 90 days Held on 09/01/24. Instructions: Doctor's Order metformin 1,000 mg PO BID morphine ER 15 mg PO DAILY 30 days morphine ER 15 mg PO DAILY 30 days naloxone 4 mg/actuation (Narcan) 1 spray intranasal Q2M omeprazole 40 mg PO DAILY prednisone take 1 or 2 tab daily for 3-7 days as needed for arthritis flare PO PRN; rituximab IV simvastatin 40 mg PO DAILY tramadol 50 mg PO Q6H PRN valsartan-hydrochlorothiazide 160-12.5 mg 1 tab PO BID Allergies: Penicillins Medical History: No history of collagen vascular disease. No previous radiation therapy. Surgical History: Previous back surgery History of hand surgery Family History: CAD (coronary artery disease) Cancer Diabetes Family history of premature coronary artery disease Hyperlipidemia Rheumatoid arthritis Social History: Smoking and tobacco/nicotine status: former use of tobacco/nicotine Alcohol intake: current Alcohol intake frequency: holidays/ special occasions only Current Complaints / Review of Systems: . Vital Signs: Performed on 03/10/2025 8:53 AM BMI - 27.504 kg/m2 (high), Height - 71 in, Weight - 197.2 lbs, Temperature - 97.6 f, Pulse - 70 /min, Respiration - 18 /min, O2 Sat - 96 %, Pain - 2, Fatigue - 0 and BP - 181/ 106 mm(hg)(high). Physical Exam: General: Alert and oriented x 3. No acute distress. HEENT: Normocephalic, atraumatic. Extraocular Movements Intact: Pupils Equal, Round, Reactive to Light and Accommodation: Sclerae anicteric. Oral cavity is clear without lesions, masses or ulcers. NECK: Supple without supraclavicular or jugular lymphadenopathy. LUNGS: Clear to auscultation bilaterally without rales, rhonchi or wheeze. HEART: Regular rate and rhythm, normal S1 and S2 without murmur, gallop or rub. MUSCULOSKELETAL: No tenderness or percussion pain over the axial skeleton, scapulae or pelvis. + Pain/swelling bilateral hands with limited ROM. ABDOMEN: Soft, nontender, nondistended without masses or organomegaly. Bowell sounds are present. EXTREMITIES: No peripheral edema is identified. Limited motor and sensory examination are grossly intact and symmetric bilaterally. NEUROLOGIC: Cranial nerves II ???XII are grossly intact. Normal sensation, strength 5/5 in all extremities, normal gait, no ataxia. Performance Status: KPS 90 Pathology: Primary, m06.00 - rheumatoid arthritis without rheumatoid factor, unspecified site, Diagnosed 03/09/2025 (active) . Lab: Imaging: See HPI Impression: M06.042 - rheumatoid arthritis without rheumatoid factor, left hand, Diagnosed 03/10/2025 (active), M06.041 - rheumatoid arthritis without rheumatoid factor, right hand, Diagnosed 03/10/2025 (active) and M06.00 - rheumatoid arthritis without rheumatoid factor, unspecified site, Diagnosed 03/09/2025 (active). SERO ??? RA X 20 YEARS AWAITING ENBREL APPROVAL, TAKES PREDNISONE 20MG QD FOR FLARES, 2/10 PAIN LEVEL, FAILED REMICADE/ ACTEMYRA/ HUMIRA/ ORENCIA/ XELJANZ(COULD NOT AFFORD)/ LEFLUNOMIDE/ METHOTREXATE/ RENFLEXIS/ RITUXIMAB, A1C 14, RA FACTOR/CCP ??? STAGE: NA ICD-10: M06.042, M06.041, M06.00 Plan: Options were discussed with the patient in detail. Patient wishes to consider LD XRT to BL Hands To qualify for the treatment he would need to have a documented diagnosis of OSTEOARTHRITIS. We will call his insurance and benefits clerk's office to expedite a reevaluation of him to see if he would qualify without diagnosis. Signed by: 03/10/2025 11:11:01 AM <<Signature on File>> Time spent with patient/review of the records/preparation of this document: 60 minutes CPT Code: CPT Code:
== END 2025-03-27 23:59 | disposition home or self-care (01) ==
PROVIDERS: PCP Nurse Practitioner Family; Visit Provider Internal Medicine Cardiovascular Disease
DX: M06.042 Rheumatoid arthritis without rheumatoid factor, left hand (principal); M06.041 Rheumatoid arthritis without rheumatoid factor, right hand; Z79.899 Other long term (current) drug therapy; I10 Essential (primary) hypertension; I70.1 Atherosclerosis of renal artery; N28.9 Disorder of kidney and ureter, unspecified
CPT/HCPCS: 99024; 99205

== ENCOUNTER 2025-03-16 10:32 | Outpatient (CLI) | payer MEDICARE, OTHER, SELFPAY ==
--- NOTE | 2025-03-16 10:38 | XR_ITS ---
WS: [email or web address] XR hand LT min 3V* [id number] REASON FOR EXAM: M19.011 - Primary osteoarthritis, right shoulder FINDINGS: No fracture or focal bone lesion. No periosteal reaction. In the DIP joints of the second through the fifth fingers there is mild joint space narrowing with mild subchondral sclerosis and mild to moderate osteophytosis. Most notable in the third and fourth fingers. Significant joint space narrowing and moderate subchondral sclerosis with subluxation in the third through the fourth MCP joints. Relatively large overhanging osteophytosis of the distal third and fourth metacarpal heads. Small bony bodies adjacent to the third and fourth MCP joints. In the DIP and MCP joint of the thumb there is mild of the joint space with mild subchondral sclerosis and mild subluxation at the MCP joint. In the CMC joint there is a more significant narrowing of the joint space with significant subchondral sclerosis, osteophytosis, and subluxation. XR/XR hand LT min 3V* [id number] IMPRESSION: The character of the osteoarthritis is typical of osteoarthritis however the di stribution is somewhat unusual with the MCP joint involvement. This could indic ate a CPPD based osteoarthritis.
--- NOTE | 2025-03-16 10:38 | XR_ITS ---
WS: [email or web address] XR shoulder LT min 2V* [id number] REASON FOR EXAM: M19.011 - Primary osteoarthritis, left shoulder FINDINGS: No fracture or focal bone lesion. Mild narrowing of the acromioclavicular joint with minimal to mild subchondral sclerosis and osteophytosis. Moderate lateral downward slant orientation of the acromial process. Glenohumeral joint space is not well demonstrated. It appears to be mildly narrowed. Mild subchondral sclerosis in the glenoid. Minimal osteophytosis of the humeral head. Minimal sclerosis and cystic change in the greater tuberosity of the humerus. Multiple healed rib fractures T4-T8. XR/XR shoulder LT min 2V* [id number] IMPRESSION: Minimal osteoarthritis in the acromioclavicular joint. Mild osteoarthritis in the glenohumeral joint. No significant rotator cuff tendon arthropathy. The acromial process orientatio n potentiate anterior impingement.
--- NOTE | 2025-03-16 10:38 | XR_ITS ---
WS: [email or web address] XR hand RT min 3V* [id number] REASON FOR EXAM: M19.011 - Primary osteoarthritis, right shoulder FINDINGS: Postoperative right wrist with small screws overlying the scaphoid and lunate carpal bones. Minimal narrowing with minimal subchondral sclerosis and osteophytosis in the DIP and PIP joints of the second through the fifth fingers. Similar arthropathy in the 3 joints of the thumb. Subluxation of the second and third MCP joints. Significant sclerosis and cystic change in the distal head of the third metacarpal with moderate overhanging osteophytosis. XR/XR hand RT min 3V* [id number] IMPRESSION: Osteoarthritis like arthropathy of the right hand. The involvement of the secon d and third MCP joints raises the possibility of CPPD osteoarthritis.
== END 2025-03-16 10:33 | disposition home or self-care (01) ==
LOC: RAD 10:35
PROVIDERS: PCP Nurse Practitioner Family; Visit Provider Internal Medicine Rheumatology
DX: M19.011 Primary osteoarthritis, right shoulder (principal); M06.041 Rheumatoid arthritis without rheumatoid factor, right hand; M06.042 Rheumatoid arthritis without rheumatoid factor, left hand; M19.012 Primary osteoarthritis, left shoulder
CPT/HCPCS: 73030; 73130

== ENCOUNTER 2025-04-07 09:29 | Oncology outpatient (recurring) (ONCR) | payer MEDICARE, OTHER, SELFPAY ==
--- NOTE | 2025-04-05 10:05 | ONCRAD TMN_ITS ---
Radiation Oncology Weekly Treatment Management Patient: Pato Mccormack MR#: [id number] : 1960 Attending Physician: Dr. Jaylin Younger Date of Service: 04/05/2025 Referring Physician(s) : Diagnosis: M06.042 - Rheumatoid arthritis without rheumatoid factor, left hand, Diagnosed 03/10/2025 (Active) M06.041 - Rheumatoid arthritis without rheumatoid factor, right hand, Diagnosed 03/10/2025 (Active) M06.00 - Rheumatoid arthritis without rheumatoid factor, unspecified site, Diagnosed 03/09/2025 (Active) Radiotherapy to date: Course: Bilateral Hands, Treatment Site: [id number], Ref. ID: [id number], Energy: 6X, Dose/Fx (cGy): 50, #Fx: 4 / 6, Dose Correction (cGy): 0, Total Dose Delivered (cGy): 200, Start Date: 03/31/2025, End Date: 04/05/2025, Elapsed Days: 5 Course: Bilateral Hands, Treatment Site: [id number], Ref. ID: [id number], Energy: 6X, Dose/Fx (cGy): 50, #Fx: 4 / 6, Dose Correction (cGy): 0, Total Dose Delivered (cGy): 200, Start Date: 03/31/2025, End Date: 04/05/2025, Elapsed Days: 5 Reason for visit: The patient is being seen today as part of their regularly scheduled weekly on treatment visits to assess for acute toxicities from radiotherapy. Review of Systems: Pt has noticed no changes Vital Signs: Performed on 04/05/2025 9:35 AM BMI - 27.253 kg/m2 (high), Height - 71 in, Weight - 195.4 lbs, Temperature - 97.6 f, Pulse - 71 /min, Respiration - 18 /min, O2 Sat - 96 %, Pain - 0, Fatigue - 0 and BP - 170/ 106 mm(hg)(high). Physical Exam: no changes on exam Imaging: Radiation therapy imaging related to accurate target localization (i.e. KV, MV and CBCT) was reviewed. Appropriate changes, if any, were made to ensure treatment accuracy. Plan: Complete treatment. Pt to return for FU in 12 weeks to consider additional round of treatment if has partial response. Signed by: Dr. Jaylin Younger 04/05/2025 10:03:41 AM
== END 2025-04-27 23:59 | disposition home or self-care (01) ==
PROVIDERS: PCP Nurse Practitioner Family; Visit Provider Radiology Radiation Oncology
DX: M06.042 Rheumatoid arthritis without rheumatoid factor, left hand (principal); M06.041 Rheumatoid arthritis without rheumatoid factor, right hand; Z79.899 Other long term (current) drug therapy; I10 Essential (primary) hypertension; I70.1 Atherosclerosis of renal artery; N28.9 Disorder of kidney and ureter, unspecified
CPT/HCPCS: 77280; 77285; 77300; 77336; 77407; 77412; 99024